=== PATIENT | female | born 1940 | race Hispanic/Latino ===

== ENCOUNTER 2025-04-19 18:14 | Emergency (ER) | payer SELFPAY ==
[~2025-04-19] VITALS: Ht 167.6 cm; Wt 81.6 kg
--- NOTE | 2025-04-19 18:22 | NUR ---
PT TO TRANSPORTED TO CT
--- NOTE | 2025-04-19 18:26 | ERN ---
ED Note History of Present Illness Stated Complaint: STROKE Chief Complaint: Stroke Symptoms Time Seen by MD: 18:18 Dictation: PATIENT IS AN 85-YEAR-OLD FEMALE WHO CAME TO THE EMERGENCY ROOM VIA POV AND HER DAUGHTER. THE PATIENT IS NONVERBAL DUE TO HER MENTATION AND DAUGHTER IS THE CHIEF HISTORIAN. DAUGHTER STATES THAT STARTING THIS AFTERNOON EARLY SHE WAS COMPLAINING OF GENERALIZED HEADACHE, THEN THE DAUGHTER NOTICED AT 15:00 HOURS WEAKNESS TO THE UPPER AND LOWER EXTREMITIES ON THE LEFT SIDE. LAST KNOWN WELL TIME WAS 15:00 HOURS. DAUGHTER STATES SHE HAS A SIGNIFICANT MEDICAL HISTORY OF PARKINSON'S, CAD HYPERTENSION AND CHOLESTEROL. STROKE ALERT WAS INITIATED. Allergies: Coded Allergies: No Known Allergies (Unverified Allergy, Unknown, 04/19/25) Past Medical History History: Not Applicable RN Note Reviewed/Agreed w/PFSH: Yes Review of System Dictation CONSTITUTIONAL: NEGATIVE EXCEPT FOR HPI HEAD/FACE: NEGATIVE EXCEPT FOR HPI EENT: NEGATIVE EXCEPT FOR HPI PUPILS ARE TWO [place] RESPIRATORY: NEGATIVE EXCEPT FOR HPI GASTROINTESTINAL/ABDOMINAL: NEGATIVE EXCEPT FOR HPI GENITOURINARY: NEGATIVE EXCEPT FOR HPI MUSCULOSKELETAL: NEGATIVE EXCEPT FOR HPI LEFT-SIDED HEMIPLEGIA NONVERBAL RESPONDS TO STERNAL RUB ONLY INTEGUMENTARY: NEGATIVE EXCEPT FOR HPI NEUROLOGICAL/PSYCH: NEGATIVE EXCEPT FOR HPI HEMATOLOGIC/LYMPHATIC: NEGATIVE EXCEPT FOR HPI ALL SYSTEMS NEGATIVE, EXCEPT NOTED ABOVE. 13 POINT REVIEW OF SYSTEMS ASSESSED AND ALL NEGATIVE EXCEPT FOR ABOVE. Initial Vital Sign VS Vital Signs Date Time Temp Pulse Resp B/P (MAP) Pulse Ox O2 Delivery O2 Flow Rate FiO2 04/19/25 18:17 98.1 73 20 142/61 92 Room Air 04/19/25 18:54 15 100 Physical Exam Dictation VITAL SIGNS REVIEWED GENERAL APPEARANCE: OBTUNDED WITH THE EYES CLOSED. RESPONSE WITH WITHDRAWAL WITH RIGHT HAND TO PAINFUL STIMULI. HEAD AND FACE: NON-TRAUMATIC. EYES: PERRL, PUPILS ARE TWO BILATERALLY [place] EARS: PINNAS INTACT AND NO SIGNS OF TRAUMA OR ERYTHEMA EAR CANALS CLEAR AND NO DISCHARGE TM NO ERYTHEMA NOSE: NO DISCHARGE, NO BLEEDING. OROPHARYNX: MOUTH NORMAL, TONGUE PINK, PHARYNX CLEAR,NO ERYTHEMA, TONSILS NO EXUDATES, NO ABSCESSES NOTED, MUCOUS MEMBRANE MOIST NECK: SUPPLE, NON-TENDER, NO THYROMEGALY, NO MASSES, NO JVD, NO BRUITS BREAST:DEFERRED CHEST:NO TENDERNESS, NO CREPITUS, NO PARADOXICAL MOVEMENT, NO RETRACTIONS LUNGS:CLEAR, WELL-VENTILATED, SYMMETRIC, NO RALES, NO WHEEZING, NO RHONCHI, NO STRIDOR, GOOD BREATH SOUNDS BILATERALLY HEART: REGULAR RATE, REGULAR RHYTHM, NO MURMUR, NO GALLOPS VASCULAR: NO PERIPHERAL EDEMA, ABDOMEN: SOFT, POSITIVE BOWEL SOUNDS, NONDISTENDED, NO GUARDING, NONTENDER, NO REBOUND, NO MASSES NO HEPATOMEGALY, NO SPLENOMEGALY, NO UREÑA'S SIGN, NO HERNIAS. RECTAL: DEFERRED GENITAL: DEFERRED NEUROLOGICAL: NONVERBAL, DENSE LEFT HEMIPLEGIA DAUGHTER IS THE HISTORIAN MUSCULOSKELETAL: NECK NONTENDER, FULL RANGE OF MOTION, BACK NONTENDER, FULL RANGE OF MOTION, EXTREMITIES: NONTENDER, FULL RANGE OF MOTION SKIN: COLOR PINK, DRY, NO TURGOR, NO RASH, NO LACERATIONS, NO ABRASIONS, NO CONTUSIONS. LYMPHATIC: DEFERRED Results (Laboratory/Radiology) Laboratory/Radiology Laboratory Tests Test 04/19/25 18:14 04/19/25 18:24 04/19/25 19:15 04/19/25 20:45 Whole Blood Glucose 184 MG/DL (70-110) H White Blood Count 9.3 K/uL (4.8-10.8) Red Blood Count 3.93 MIL/uL (4.00-5.50) L Hemoglobin 12.5 g/dL (12.0-16.0) Hematocrit 36.7 % (36-48) Mean Corpuscular Volume 93.4 fL (79-99) Mean Corpuscular Hemoglobin 31.8 pg (27.0-33.0) Mean Corpuscular Hemoglobin Concent 34.1 g/dL (32.0-36.0) Red Cell Distribution Width 13.3 % (11.0-15.5) Platelet Count 218 K/uL (130-400) Mean Platelet Volume 10.9 fL (7.5-10.5) H Immature Granulocyte % (Auto) 0.4 % (0-1) Neutrophils (%) (Auto) 57.5 % (40.0-77.0) Lymphocytes (%) (Auto) 33.5 % (21.0-51.0) Monocytes (%) (Auto) 5.1 % (3.0-13.0) Eosinophils (%) (Auto) 3.2 % (0.0-8.0) Basophils (%) (Auto) 0.3 % (0.0-5.0) Neutrophils # (Auto) 5.3 K/uL (1.8-7.7) Lymphocytes # (Auto) 3.1 K/uL (1.0-4.8) Monocytes # (Auto) 0.5 K/uL (0.1-1.0) Eosinophils # (Auto) 0.30 K/uL (0.00-0.70) Basophils # (Auto) 0.03 K/uL (0.00-0.20) Absolute Immature Granulocyte (auto 0.04 K/uL (0-1) Nucleated Red Blood Cells 0.0 % (0.0-0.19) Prothrombin Time 9.8 SEC (9.6-11.6) Prothromb Time International Ratio <= 0.93 (0.85-1.15) Activated Partial Thromboplast Time 26.5 SEC (26.3-35.5) Sodium Level 138 mmol/L (136-145) Potassium Level 4.2 mmol/L (3.5-5.1) Chloride Level 101 mmol/L (101-111) Carbon Dioxide Level 26 mmol/L (21-32) Blood Urea Nitrogen 37 mg/dL (7-18) H Creatinine 1.3 mg/dL (0.5-1.0) H Glomerular Filtration Rate Calc 41 mL/min (>90) Random Glucose 198 mg/dL (70-105) H Total Calcium 9.3 mg/dL (8.5-10.1) Troponin I High Sensitivity 6 ng/L (4-50) Blood Gas Specimen Type Arterial Arterial Blood pH 7.400 (7.350-7.450) Arterial Blood Partial Pressure CO2 34 mmHg (32-45) Arterial Blood Partial Pressure O2 226.9 mmHg (83.0-108.0) H Arterial Blood HCO3 20.3 mmol/L (21.0-28.0) L Arterial Blood Oxygen Saturation 98.8 % (94.0-98.0) H Arterial Blood Base Excess -3.7 mmol/L (-2.0-3.0) L Hemoglobin (Blood Gas) 12.5 g/dL (12.0-16.0) Sodium (Blood Gas) 137 MMOL/L (136-145) Bedside Potassium (Blood Gas) 4.2 MMOL/L (3.4-4.5) Bedside Chloride (Blood Gas) 103 MMOL/L (98-107) Bedside Glucose (Blood Gas) 195 MG/DL (65-95) H Bedside Ionized Calcium (Blood Gas) 1.19 MMOL/L (1.15-1.33) Bedside Lactic Acid (Blood Gas) 1.28 MMOL/L (0.36-0.75) H Blood Gas Temperature 37.0 CELSIUS (35.5-37.0) Blood Gas Flow-by 15.00 L/min (0.00-15.00) Blood Gas Vent Mode NRBM (ROOM AIR) FiO2 100.0 % Blood Gas Specimen Comment RB Urine Color LIGHT-YELLOW (YELLOW) Urine Appearance CLEAR (CLEAR) Urine pH 5.0 (5.0-8.0) Urine Specific [place] 1.017 (1.001-1.031) Urine Protein NEGATIVE mg/dL (NEGATIVE) Urine Glucose (UA) 70 mg/dL (NEGATIVE) H Urine Ketones NEGATIVE mg/dL (NEGATIVE) Urine Occult Blood SMALL (NEGATIVE) H Urine Nitrate NEGATIVE (NEGATIVE) Urine Bilirubin NEGATIVE mg/dL (NEGATIVE) Urine Urobilinogen 0.2 mg/dL (0.2-1.0) Urine Leukocyte Esterase NEGATIVE Jacob/uL Urine RBC 0-1 /HPF (0-1) Urine WBC 0-1 /HPF (0-1) Urine Bacteria None /HPF (None Seen) Urine Hyaline Casts 2-5 /LPF (0-1 /LPF) H Test 04/19/25 21:37 Blood Gas Specimen Type Arterial Arterial Blood pH 7.334 (7.350-7.450) Arterial Blood Partial Pressure CO2 37 mmHg (32-45) Arterial Blood Partial Pressure O2 93.3 mmHg (83.0-108.0) Arterial Blood HCO3 19.3 mmol/L (21.0-28.0) L Arterial Blood Oxygen Saturation 96.7 % (94.0-98.0) Arterial Blood Base Excess -5.9 mmol/L (-2.0-3.0) L Blood Gas Temperature 37.0 CELSIUS (35.5-37.0) Blood Gas Respiration Rate 12.0 min. Blood Gas Vent Mode ACVC (ROOM AIR) FiO2 50.0 % Blood Gas Tidal Volume 400 ml Blood Gas PEEP 5 cm H2O Blood Gas Specimen Comment RB ADDENDUM REPORT ADDENDUM: Results were shared by telephone at 20:01 pm on 04/19/25 and acknowledged by CERTIFIED ALCOHOL DRUG COUNSELOR Mikael Rashard. /[place] EXAM: CT Head Without IV contrast. CLINICAL HISTORY: CODE STROKE TECHNIQUE: Axial computed tomography images of the head/brain without intravenous contrast. COMPARISON: None provided. FINDINGS: There is a large area of low-attenuation within the right cerebral hemisphere likely reflecting an acute right MCA territory infarction. No hemorrhagic transformation appreciated. Chronic microvascular ischemic white matter disease. There is associated right cerebral vasogenic edema with mild mass effect upon the right lateral ventricle. There is no midline shift. Basal cisterns remain patent. No mass lesion is identified. Orbits and globes are within normal limits. Mild left sphenoid sinus disease. Remaining paranasal sinuses and mastoid air cells are well-pneumatized. The calvarium is intact. IMPRESSION: 1. Acute right MCA territory infarction with associated vasogenic edema and mild mass effect upon the right lateral ventricle, without hemorrhagic transformation or midline shift. /[place] 2. EXAM: CTA Neck without and with Intravenous Contrast. CLINICAL HISTORY: Acute onset left-sided hemiplegia. TECHNIQUE: Pre and postcontrast axial CTA images of the neck were performed. Coronal and sagittal reformatted images were generated and reviewed. CT scan is done according to ALARA (As Low as Reasonably Achievable). COMPARISON: None provided. FINDINGS: Mild atherosclerotic calcification of the aortic arch. Atherosclerotic calcification of the bilateral carotid bulbs and approximately 40-50% narrowing of the left carotid bulb. Nonopacification of the right internal carotid artery from its origin and nonopacification of the petrous and cavernous portion of the right internal carotid arteries. Normal contrast opacification of the left internal carotid artery, bilateral external carotid artery, and vertebral arteries. Vertebral arteries are well opacified. Jugular veins are well opacified The included great vessels of the aortic arch are grossly unremarkable except for atherosclerotic calcification of the aortic arch. Subsegmental atelectasis in the posterior segment of the right upper lobe and apicoposterior segment of the left upper lobe. Endotracheal and nasogastric tubes are identified. No acute bony changes. Moderate degenerative changes in the cervical spine. Mild S-shaped deviation of the nasal septum. Air-fluid level in the left sphenoid sinus. IMPRESSION: Completely occluded extracranial segments, petrous, and cavernous segments of the right internal carotid artery. Atherosclerotic calcification of the bilateral carotid bulbs and approximately 40-50% narrowing of the left carotid bulb. /[place] Labs Reviewed?: Yes EKG Comment: EKG SINUS RHYTHM/HEART RATE 76/OCCASIONAL PVCS/UNIFOCAL NO ST SEGMENT CHANGE ED Course ED Course Orders Procedure Category Date Status Time Pt And Ptt LAB 04/19/25 Complete 18:18 Ct Head/Brain W/O CT 04/19/25 Resulted Contrast 18:18 Cbc With Differential LAB 04/19/25 Complete 18:18 Troponin I High LAB 04/19/25 Complete Sensitivity 18:18 Urinalysis Profile LAB 04/19/25 Complete 18:18 12 Lead Ekg Tracing- EKG 04/19/25 Resulted Technical 18:18 Basic Metabolic Panel LAB 04/19/25 Complete 18:18 Nih Stroke Scale CPOE 04/19/25 Transmitted (Stroke) 18:47 Nurse Driven Wagner ZAKIYA 04/19/25 Complete Removal Pro 18:47 Ct Angio Head And Neck CT 04/19/25 Resulted 18:53 Arterial Blood Gas LAB 04/19/25 Complete Arterial + 19:15 Norepinephrin 4mg/Ns PHA 04/19/25 Complete 250ml (Levophed 4mg 19:38 Chest 1vw RAD 04/19/25 Resulted 19:42 Fentanyl 1000mcg+Ns PHA 04/19/25 Complete 100ml (Fentanyl 1000 19:49 Propofol 1000 Mg/100 PHA 04/19/25 Complete Ml (Diprivan 1000mg 19:49 Iohexol (Omnipaque) PHA 04/19/25 Complete 20:06 Arterial Blood Gas RT 04/19/25 Transmitted 21:37 Arterial Blood Gas LAB 04/19/25 Complete 21:37 Rocuronium [place] PHA 04/19/25 Complete (Zemuron) 18:15 Etomidate 20mg Vial PHA 04/19/25 Complete (Amidate 20mg Vial) 18:15 Current Medications Medications (Trade) Dose Ordered Sig/Luis Route PRN Reason Start Time Stop Time Status Last Admin Dose Admin Etomidate (Amidate 20mg Vial) 20 mg STK-MED ONCE IVP 04/19/25 18:15 04/20/25 08:54 DC Fentanyl Citrate 100 ml @ As Directed STK-MED ONCE IV 04/19/25 19:49 04/19/25 19:49 DC 04/19/25 20:55 Iohexol (Omnipaque) 75 ml STK-MED ONCE IV 04/19/25 20:06 04/19/25 20:07 DC Norepinephrine 0 ml @ As Directed STK-MED ONCE IV 04/19/25 19:38 04/19/25 19:38 DC Propofol 100 ml @ As Directed STK-MED ONCE IV 04/19/25 19:49 04/19/25 19:49 DC 04/19/25 20:52 Rocuronium [place] (ZemuRON) 50 mg STK-MED ONCE IV 04/19/25 18:15 04/20/25 08:54 DC Vital Signs Date Time Temp Pulse Resp B/P (MAP) Pulse Ox O2 Delivery O2 Flow Rate FiO2 04/20/25 00:41 97.5 67 16 93/58 99 Ventilator+ 0 50 04/20/25 00:01 82 50 04/19/25 23:15 97.5 68 15 108/58 98 Ventilator+ 0 50 04/19/25 22:15 97.9 75 14 115/65 98 Ventilator+ 0 50 04/19/25 21:50 80 50 04/19/25 21:15 97.9 79 14 147/89 98 Ventilator+ 0 50 04/19/25 21:01 97.9 89 17 125/69 98 Ventilator+ 0 50 04/19/25 20:26 89 50 04/19/25 20:01 105 50 04/19/25 20:00 97.5 89 18 161/81 98 Ventilator+ 0 50 04/19/25 19:45 97.9 85 18 169/94 98 Room Air* 0 21 04/19/25 19:00 97.9 87 18 165/89 98 Room Air* 0 21 04/19/25 18:54 66 17 128/68 100 Non-Rebreather+ 15 100 04/19/25 18:17 98.1 73 20 142/61 92 Room Air 1845/SPOKE WITH CARLTON AT [facility] [place] [facility] CODE [phone] SHE AWARE THIS IS A STROKE ALERT AND SAID SHE WOULD HAVE CT OF THE HEAD EXPEDITED. 1906/ SPOKE WITH /neurology and he is seen the CT report. He wanted clarification on the last known well time since this represented more a malignancy with a edema. He records meds MRI without contrast and neurosurgical consultation with Neurology [id number] spoke with family and it was clarified that the onset of the headache was yesterday at 19:00 hours. It has been progressing since then. The hemiplegia actually started 15:00 hours today. 1929/Naomi Castanon/daughter at bedside and she is th guardian for the patient. She agrees with patient to be intubated and to be transferred to a higher level of care. NINI Terrazas permanent mold supervisor was notified about transfer to a higher level of care. Doctor Franko to intubate. 1949/spoke with Faisal at the [facility] transfer center and Dr. Larson, neurosurgery. He was read the CT of the head impression and said that with out any evidence of an occlusive disease at there was nothing he could do at this point that we needed to complete the CTA angio of the head and neck and then returned the call back to the transfer center once this has been obtained.this information to Nini faith/dr Raines. 2099/SPOKE WITH CARLTON AT [facility], SHE WILL HAVE THE CT ANGIO HEAD AND NECK EXPEDITED AND STATES I WE WILL HAVE A READING WITH THE NEXT 2-[address] ANGIO HEAD AND NECK PERFORMED AND READING BAG. PATIENT HAS COMPLETELY OCCLUDED RIGHT CAROTID ARTERY, 50% OCCLUSION LEFT CAROTID BULB. SPOKE WITH NINI TERRAZAS LIFELINE REPRESENTATIVES AND HE WILL REINSTITUTE PROCEEDING TO A HIGHER LEVEL OF CARE PATIENT REMAINS HEMODYNAMICALLY STABLE SHE IS INTUBATED. 2149/ SPOKE WITH FAISAL AT [facility] AND , REVIEWED FINDINGS FROM CTA OF HEAD AND NECK. HE SAID HE WOULD SPEAK TO THE TRANSFER CENTER AND LET THEM TELL ME THE ANSWER TO BE TRANSFERRED IN 2199/SPOKE WITH FAISAL AT [facility]. HE SAID DECLINES TRANSFER AT THIS TIME BECAUSE THERE WAS NOTHING HE COULD DO FROM HIS STANDPOINT. SPOKE WITH NINI TERRAZAS LIFELINE REPRESENTATIVES AND WE WILL INITIATE TRANSFER TO 2199/CARE TARNSFERRED TO DR RAINES HEART Score Response (Comments) Value EKG: Repolarization changes 1 Age: > 65yrs (+2) 2 Risk Factors: 3+ risk factors (+2) 2 Initial Troponin: Normal limit (0) 0 Total 5 Medical Decision Making MDM MDM: Differential diagnosis: CVA/subarachnoid hemorrhage/TIA/neuro malignancy/electrolyte imbalance/dehydration/cardiac event Rationale: Tests considered and ordered secondary to shared decision making include: EKG/labs/radiology Previous outside records reviewed: Old ER visits. Risk of complication and/or morbidity or mortality of patient management: Moderate to severe Medications-Per medication reconciliation Need for hospitalization: Patient does not meet criteria for hospitalization. Patient will need be transferred to a higher level of care for neurosurgical management and Neurology consultation. Need for emergency major/minor surgery: No There are no social concerns with this patient. Prescription drug management Prescriptions will include symptomatic care Patient's prior external medical records from other ER visits were reviewed by me as indicated. Prior testing and results from previous visits were reviewed. Prior tests were taken into account with medical decision making and resource utilization, independent historian/historians were used to obtain complete medical history. I independently interpreted the test that were performed, results were reviewed by me and considered findings on radiology if ordered. Medical management and examination interpretation discussions were had by me with other qualified healthcare professionals as indicated for the patient's care. 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
[2025-04-19 18:36] LABS: IMMATURE GRANULOCYTE ABSOLUTE 0.04 K/uL (0-1); NUCLEATED RED BLOOD CELLS 0.0 % (0.0-0.19); PLATELET COUNT (AUTO) 218 K/uL (130-400); RED BLOOD CELL COUNT(AUTO) 3.93 MIL/uL (4.00-5.50); RED CELL DISTRIBUTION WIDTH 13.3 % (11.0-15.5); WHITE BLOOD COUNT (AUTO) 9.3 K/uL (4.8-10.8)
[2025-04-19 18:47] LABS: CREATININE 1.3 mg/dL (0.5-1.0); GLOMERULAR FILTR. RATE CALC 41.0 mL/min (>90); GLUCOSE,RANDOM 198.0 mg/dL (70-105); SODIUM SERUM 138.0 mmol/L (136-145); UREA NITROGEN, BLOOD 37.0 mg/dL (7-18)
[2025-04-19 18:48] LABS: INR <= 0.93 (0.85-1.15)
--- NOTE | 2025-04-19 18:59 | HMCIMG ---
EXAM: CT Head Without IV contrast. CLINICAL HISTORY: CODE STROKE TECHNIQUE: Axial computed tomography images of the head/brain without intravenous contrast. COMPARISON: None provided. FINDINGS: There is a large area of low-attenuation within the right cerebral hemisphere likely reflecting an acute right MCA territory infarction. No hemorrhagic transformation appreciated. Chronic microvascular ischemic white matter disease. There is associated right cerebral vasogenic edema with mild mass effect upon the right lateral ventricle. There is no midline shift. Basal cisterns remain patent. No mass lesion is identified. Orbits and globes are within normal limits. Mild left sphenoid sinus disease. Remaining paranasal sinuses and mastoid air cells are well-pneumatized. The calvarium is intact. IMPRESSION: 1. Acute right MCA territory infarction with associated vasogenic edema and mild mass effect upon the right lateral ventricle, without hemorrhagic transformation or midline shift. /[place]
[2025-04-19 19:16] LABS: ABG BASE EXCESS -3.7 mmol/L (-2.0-3.0); ABG HCO3 20.3 mmol/L (21.0-28.0); ABG OXYGEN SATURATION 98.8 % (94.0-98.0); ABG PCO2 34 mmHg (32-45); ABG PH 7.400 (7.350-7.450); CARBON MONOXIDE 0.9 % (0.5-1.5); PO2, ARTERIAL BG 226.9 mmHg (83.0-108.0); TEMPERATURE, CELSIUS BG 37.0 CELSIUS (35.5-37.0); VENT MODE, BG NRBM (ROOM AIR)
--- NOTE | 2025-04-19 19:34 | NUR ---
SPOKE WITH FAISAL AT [facility]. TRANSFER REQUEST INITIATED FOR CVA.
[2025-04-19 20:01] VITALS: PULSE 105; O2SAT 97
[2025-04-19] MEDS ORDERED: IOHEXOL-350 75 ML VIAL IV ONE (20:06)
[2025-04-19 20:26] VITALS: PULSE 89; O2SAT 98
--- NOTE | 2025-04-19 20:40 | HMCIMG ---
EXAM: CR Chest, 3 views. CLINICAL HISTORY: Status postintubation. COMPARISON: None provided. FINDINGS: The endotracheal tube tip is 4.4 cm above the jessica. The gastric tube tip is around the distal stomach. Small fibrocalcific opacity in the left lower zone. Mildly enlarged cardiac silhouette. No acute infiltrate, effusion, or pneumothorax. No acute osseous abnormality. IMPRESSION: The endotracheal tube tip is 4.4 cm above the jessica. The gastric tube tip is around the distal stomach. Small fibrocalcific opacity in the left lower zone. Mildly enlarged cardiac silhouette could be secondary to AP projection and the patient's rotation. /[place]
[2025-04-19] MEDS: NOREPINEPHRIN 4MG/NS 250ML 0 ML IV ONE (20:43)
--- NOTE | 2025-04-19 21:08 | HMCIMG ---
1. EXAM: CTA Head without and with Intravenous Contrast. CLINICAL HISTORY: Acute onset left-sided hemiplegia. TECHNIQUE: Pre and postcontrast axial CTA images of the head were performed. Coronal and sagittal reformatted images were generated and reviewed. CT scan is done according to ALARA (As Low as Reasonably Achievable). COMPARISON: Same day CT brain FINDINGS: Atherosclerotic calcification of the cavernous portion of bilateral internal carotid arteries, with approximately 40% narrowing on either side. Nonopacification of the petrous and cavernous portion of the right internal carotid artery is consistent with thrombosis. Some contrast opacification and preserved flow in the right middle cerebral artery through the collateral circulation via the [place]. Mild atherosclerotic narrowing of the right middle cerebral artery and anterior cerebral artery. Paucity of the cortical vessels overlying the right frontal, parietal, and temporal regions. Anterior cerebral arteries are unremarkable. The anterior communicating artery is opacified. The left middle cerebral artery is unremarkable. Posterior communicating arteries are opacified. Posterior cerebral arteries are intact. Vertebral arteries are visualized. The basilar artery is unremarkable. Patent left internal carotid artery. No evidence of aneurysm (greater than 4 mm) or arteriovenous lesion. Age-related degenerative change with changes of chronic microvascular ischemic disease. A large hypodensity in the territory supplied by the right middle cerebral artery, with loss of brown-white matter differentiation consistent with an acute infarct. IMPRESSION: Completely occluded petrous and cavernous portion of the right internal carotid artery. Some contrast opacification and preserved flow in the right middle cerebral artery through the collateral circulation via the [place]. Mild atherosclerotic narrowing of the right middle cerebral artery and anterior cerebral artery. Paucity of the cortical vessels overlying the right frontal, parietal, and temporal regions. Compatible with acute infarction along the right MCA territory. Age-related degenerative change with changes of chronic microvascular ischemic disease. 2. EXAM: CTA Neck without and with Intravenous Contrast. CLINICAL HISTORY: Acute onset left-sided hemiplegia. TECHNIQUE: Pre and postcontrast axial CTA images of the neck were performed. Coronal and sagittal reformatted images were generated and reviewed. CT scan is done according to ALARA (As Low as Reasonably Achievable). COMPARISON: None provided. FINDINGS: Mild atherosclerotic calcification of the aortic arch. Atherosclerotic calcification of the bilateral carotid bulbs and approximately 40-50% narrowing of the left carotid bulb. Nonopacification of the right internal carotid artery from its origin and nonopacification of the petrous and cavernous portion of the right internal carotid arteries. Normal contrast opacification of the left internal carotid artery, bilateral external carotid artery, and vertebral arteries. Vertebral arteries are well opacified. Jugular veins are well opacified The included great vessels of the aortic arch are grossly unremarkable except for atherosclerotic calcification of the aortic arch. Subsegmental atelectasis in the posterior segment of the right upper lobe and apicoposterior segment of the left upper lobe. Endotracheal and nasogastric tubes are identified. No acute bony changes. Moderate degenerative changes in the cervical spine. Mild S-shaped deviation of the nasal septum. Air-fluid level in the left sphenoid sinus. IMPRESSION: Completely occluded extracranial segments, petrous, and cavernous segments of the right internal carotid artery. Atherosclerotic calcification of the bilateral carotid bulbs and approximately 40-50% narrowing of the left carotid bulb. /[place]
[2025-04-19 21:17] LABS: APPEARANCE,URINE CLEAR (CLEAR); GLUCOSE, URINE (UA) 70 mg/dL (NEGATIVE); LEUKOCYTE ESTERASE ,URINE NEGATIVE Leu/uL (NEGATIVE); NITRATE,URINE NEGATIVE (NEGATIVE); OCCULT BLOOD,URINE SMALL (NEGATIVE)
[2025-04-19 21:23] LABS: ADD UA MICROSCOPIC YES
[2025-04-19 21:38] LABS: ABG BASE EXCESS -5.9 mmol/L (-2.0-3.0); ABG HCO3 19.3 mmol/L (21.0-28.0); ABG OXYGEN SATURATION 96.7 % (94.0-98.0); ABG PCO2 37 mmHg (32-45); ABG PH 7.334 (7.350-7.450); PO2, ARTERIAL BG 93.3 mmHg (83.0-108.0); TEMPERATURE, CELSIUS BG 37.0 CELSIUS (35.5-37.0); VENT MODE, BG ACVC (ROOM AIR)
[2025-04-19 21:50] VITALS: PULSE 80; O2SAT 99
--- NOTE | 2025-04-19 22:02 | NUR ---
RECIEVED CALL FROM FAISAL AT [facility] STATING THAT DR. YORK THE NEUROSURGEON DECLINED THE PATIENT. WILL TRY DHR NOW.
--- NOTE | 2025-04-19 22:04 | NUR ---
SPOKE WITH JOSEFINA AT [facility]. PT TRANSFER REQUEST INITIATED.
--- NOTE | 2025-04-19 22:33 | NUR ---
RECEIVED CALL FROM FAISAL AT [facility] WHO STATES THAT HE HAD ESCALATED THE CASE TO HIS WOOD MECHANIST LOAN ANALYST AND THAT THEY WOULD BE ACCEPTING THE PT AFTER INITIALLY DECLINING THE TRANSFER. HE FURTHER STATED HE WOULD CALL BACK WITH MOT INFORMATION AND BED ASSIGNMENT.
--- NOTE | 2025-04-19 23:47 | NUR ---
REPORT GIVEN TO GARRETT MINOR RN AT [facility] [place] [facility]25 #[phone] ALL QUESTIONS ANSWERED AT THIS TIME, RN EXPECTING PT ARRIVAL TO THE UNIT. PENDING STEC AT THIS TIME.
[2025-04-20 00:01] VITALS: PULSE 82; O2SAT 99
[2025-04-20 00:41] VITALS: BP 93/58; PULSE 67; RESP 16; TEMP 97.5; O2SAT 99
--- NOTE | 2025-04-20 06:29 | EKG ---
[facility] Test Date: 2025-04-19 Test Time: 18:22:16 Pat Name: TERRIE MARTINDepartment: [facility] Room: Gender: F Track Maintainer: [id number] : 1940 Requested By: CAROL ANN MYRICK Order Number: [id number] Reading MD: Anshu Trinidad Measurements Intervals [place] Rate: 72 P: 232 FL: 71 QRS: 29 QRSD: 86 T: 206 QT: 0 QTc: 0 Interpretive Statements Ectopic atrial rhythm See Lead III Tremor artifact Low voltage, precordial leads Nonspecific T abnrm, anterolateral leads No previous ECG available for comparison Electronically Signed On 04-20-2025 22:06:47 CDT by Anshu Trinidad Please click the below link to view image of tracing.
== END 2025-04-20 00:45 | disposition short-term general hospital (02) ==
LOC: EDH 18:14
DX: I63.521 Cerebral infarction due to unspecified occlusion or stenosis of right anterior cerebral artery (principal); G93.6 Cerebral edema; I63.231 Cerebral infarction due to unspecified occlusion or stenosis of right carotid arteries; G81.94 Hemiplegia, unspecified affecting left nondominant side; G20.A1 Parkinson's disease without dyskinesia, without mention of fluctuations; E11.65 Type 2 diabetes mellitus with hyperglycemia; I12.9 Hypertensive chronic kidney disease with stage 1 through stage 4 chronic kidney disease, or unspecified chronic kidney disease; E11.22 Type 2 diabetes mellitus with diabetic chronic kidney disease; N18.30 Chronic kidney disease, stage 3 unspecified
CPT/HCPCS: 99285; 70450; 31500; 71045; 82947; 82435; 84484; 84132; 84295; 80048; 82803 ×2; 85025; 85610; 85730; 85018; 82948; 83605; 81001; 36415; 70496; 70498; 93005; 36600 ×2; J3010; J3490 ×2; J2704; Q9967; 94002; 94003